=== PATIENT | male | born 1975 | race Caucasian/White ===

== ENCOUNTER → 2016-06-15 | Outpatient (CLI) | payer OTHER ==
[~2016-06-15] MED LIST: CEPH-331 PO; CPR500T PO; METR500T17 PO; ONDA8TAB6 PO; SULF-221 PO
[2016-06-15 12:53] VITALS: BP 152/84
--- NOTE | 2016-06-15 12:53 | Urgent Care T Sheet Gen (E) ---
Intake General Temperature (Fahrenheit): 101.2 Pulse: 133 Blood Pressure Systolic: 152 Blood Pressure Diastolic: 84 Respirations: 20 SPO2: 97 Description of Symptoms Patient presents with sudden onset of illness. Patient was at work this morning when he suddenly became feverish and nauseated. Vomited several times. Denies any diarrhea. States he can't stop shaking. His mouth feels dry but he has been drinking fluids. Patient has a few doses left of Bactrim DS which he has been taking for several weeks for a persistent skin infection. States the lesions on the legs are almost completely gone. 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 History of Present Illness Allergies: Coded Allergies: No Known Drug Allergies (Unverified , 05/08/16) Home Meds Active Scripts Sulfamethoxazole/Trimethoprim (Sulfamethoxazole/Trimethoprim DS 800mg/160mg)1 Each Tablet1 Each PO BID #14 TAB Prov:POLLO HOBBS 05/29/16 Cephalexin (Keflex)500 Mg [id number] Mg PO TID Infection #30 CAP Ref 0 Prov:LAURA RENEE APRN () 05/08/16 Respiratory Constitutional Symptoms: Fever Malaise EENTM: No symptoms reported Respiratory: No symptoms reported Cardiovascular: No symptoms reported Gastrointestinal/Abdominal: No Diarrhea, Nausea Vomiting Genitourinary: No symptoms reported All Other Systems Reviewed Remaining Systems: All other systems reviewed with negative findings Past Pbfkbxd-Hlxeps-Rdzeki Hx Patient's Social History Alcohol Use: Denies Use Surgeries/Hospitalizations Hospitalization/Surgery Hx: pacemaker x 2 for complete heart block HTN pam is [employer]- awareBP Cardiovascular Cardiovascular History: Hypertension, Other, see comment Physical Exam Physical Exam General Appearance: WD/WN Mild distress (patient is sweating. is obviously ill.) Eyes, Ears, Nose, Throat Ex: TMs normal Pharynx normal (mouth is slightly dry) Neck Exam: SuppleNo Lymphadenopathy Respiratory Exam: Lungs clear Normal breath sounds Cardiovascular Exam: No murmur Tachycardia GI/ Exam: No distention Abnormal bowel sound (hypoactive) Tenderness ( gastric and epigastric regions.)No Guarding, No Rebound Skin Exam: Diaphoresis Neurologic/Psychiatric Exam: Oriented times 4 Comment Patient urinated normally while in clinic. Progress/Orders Progress Note: Progress Note I sent the patient to the hospital for CBC. WBC elevated at 17.31 (upper limits of normal 11) %neutrophils 92 (upper limits of normal 67) Lab Results Labs Results: Influenza A/B (A negative, B negative) Departure Urgent Care Impression Impression: Primary Impression: Bacterial infection of gastrointestinal tract Departure Disposition: 01 HOME OR SELF-CARE Condition: Stable Additional Instructions: With his elevated white count and fever, I have started the patient on both Flagyl and Cipro for infection. I have also prescribed Zofran for nausea. Patient's appendix was removed when he was 13. With his severe nausea and vomiting, bowel obstruction is on my differential, however his abdomen was not distended and there was no rebound tenderness. He was only tender over the gastric and epigastric regions and he urinated normally while in clinic. No pain in the LLQ or RLQ. Discussed treatment plan, workup, etc with patient and significant other. If his fever doesn't respond to treatment, his abdominal pain worsens or he becomes dehydrated, they are to immediately present to the ER for further workup and treatment. Rest. Fluids. Sips and chips. Stop Bactrim as skin infection has cleared. Patient and significant other understands DC instructions. All questions were answered. Scripts Metronidazole (Flagyl)500 Mg [id number] Mg PO TID #21 TAB Ref 0 Prov:POLLO HOBBS 06/15/16 Ciprofloxacin HCl (Cipro)500 Mg [id number] Mg PO BID Infection #14 TAB Ref 0 Prov:POLLO HOBBS 06/15/16 Ondansetron HCl (Zofran)8 Mg Tablet8 Mg PO TID PRN NAUSEA/VOMITING #30 TAB Ref 0 Prov:POLLO HOBBS 06/15/16 End of report . POLLO HOBBS Jun 15, 2016 12:53
== END ==
LOC: MHUC 11:18
PROVIDERS: ATTEND Physician Assistant
DX: A04.9 Bacterial intestinal infection, unspecified (principal)
CPT/HCPCS: 99213

== ENCOUNTER → 2016-06-15 | Outpatient (CLI) | payer OTHER ==
[2016-06-15 12:12] LABS: MEAN CORPUSCULAR HGB CONC 35.1 g/dL (31.0-37.0); MEAN CORPUSCULAR VOLUME 91 FL (80-100); PLATELET COUNT 322 10^3uL (150-450); WHITE BLOOD COUNT 17.31 10^3uL (4.0-11.0)
[2016-06-15 12:16] LABS: MEAN CORPUSCULAR HEMOGLOBIN 31.8 PG (26.0-34.0)
[2016-06-15 12:20] LABS: BAND NEUTROPHILS % 1 % (0-6); EOSINOPHILS % 1 % (0-4); LYMPHOCYTES # 0.5 #; MONOCYTES # 0.5 #; MONOCYTES % 3 % (3-11); RBC MORPH NORMAL (NORMAL); SEGMENTED NEUTROPHILS % 92 % (51-67); TOTAL CELLS COUNTED 100
== END ==
LOC: LAB 12:04
PROVIDERS: ATTEND Physician Assistant
DX: R50.9 Fever, unspecified (principal)
CPT/HCPCS: 36415; 85025

== ENCOUNTER → 2016-09-26 | Outpatient (CLI) | payer OTHER ==
[~2016-09-26] MED LIST changes: +DOXY-182 PO
[2016-09-26 12:20] VITALS: BP 156/87
--- NOTE | 2016-09-26 12:20 | Urgent Care T Sheet Gen (E) ---
Intake General Temperature (Fahrenheit): 99.0 Pulse: 93 Blood Pressure Systolic: 156 Blood Pressure Diastolic: 87 Respirations: 18 SPO2: 97 Description of Symptoms Patient presents with probable spider bite to the L pointer finger. First noticed yesterday. 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 Patient states this one is different. Notes YEBOAH, joint and muscle aches and nausea. Had some left over Bactrim at home and took 2 doses. Patient tried to poke the area last night to drain it however nothing came out. History of Present Illness Allergies: Coded Allergies: No Known Drug Allergies (Unverified , 05/08/16) Home Meds Active Scripts Metronidazole (Flagyl)500 Mg [id number] Mg PO TID #21 TAB Ref 0 Prov:POLLO HOBBS 06/15/16 Ciprofloxacin HCl (Cipro)500 Mg [id number] Mg PO BID Infection #14 TAB Ref 0 Prov:POLLO HOBBS 06/15/16 Ondansetron HCl (Zofran)8 Mg Tablet8 Mg PO TID PRN NAUSEA/VOMITING #30 TAB Ref 0 Prov:POLLO HOBBS 06/15/16 Sulfamethoxazole/Trimethoprim (Sulfamethoxazole/Trimethoprim DS 800mg/160mg)1 Each Tablet1 Each PO BID #14 TAB Prov:POLLO HOBBS 05/29/16 Cephalexin (Keflex)500 Mg [id number] Mg PO TID Infection #30 CAP Ref 0 Prov:LAURA RENEE APRN () 05/08/16 Respiratory Constitutional Symptoms: Malaise EENTM: No symptoms reported Respiratory: No symptoms reported Cardiovascular: No symptoms reported Musculoskeletal: Muscle pain Skin: Lesions Neurological: Headache All Other Systems Reviewed Remaining Systems: All other systems reviewed with negative findings Past Nqingsd-Iwlcmp-Iomuno Hx Patient's Social History Alcohol Use: Denies Use Surgeries/Hospitalizations Hospitalization/Surgery Hx: 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 black center with some purulent drainage. surrounding erythema with warm skin.) Extremity Exam: Full range of motion (in L pointer finger) Neurologic/Psychiatric Exam: No sensory deficits (normal sensation in the L pointer finger) Departure Urgent Care Impression Impression: Primary Impression: Infection of skin Additional Impression: Spider bite Qualified Code: T63.301A - Toxic effect of unspecified spider venom, accidental (unintentional), initial encounter Departure Disposition: 01 HOME OR SELF-CARE Condition: Stable Referrals: Reuben Ferrera (PCP) Additional Instructions: The Bactrim he has taken the in past has upset his stomach, he requested something different. I have started him on Doxycycline BID x 7 days Ibuprofen as needed for aches/fever Keep area clean and covered. Return if no better Patient understands DC instructions. All questions were answered. Scripts Doxycycline Hyclate 100 Mg Tablet.dr100 Mg PO BID Infection #14 TAB Ref 1 Prov:POLLO HOBBS 09/26/16 End of report . POLLO HOBBS Sep 26, 2016 12:20
== END ==
LOC: MHUC 11:43
PROVIDERS: ATTEND Physician Assistant
DX: T63.301A Toxic effect of unspecified spider venom, accidental (unintentional), initial encounter (principal)
CPT/HCPCS: 99213